=== PATIENT | male | born 1950 | race Caucasian/White ===

== ENCOUNTER 2023-07-22 14:02 | Emergency (ER) | payer OTHER ==
[2023-07-22] MEDS ORDERED: DOXY100T2 PO ×2 (14:28→14:35)
[2023-07-22] MEDS ORDERED: METH4TAB10 PO ×2 (14:28→14:35)
--- NOTE | 2023-07-22 14:28 | ED Cough/URI ---
General Chief Complaint: COVID19 Suspect/Confirmed Stated Complaint: DIARRHEA; NASAL DRAINAGE; LETHARGY Source: patient Exam Limitations: no limitations History of Present Illness Date Seen by Provider: Jul 22, 2023 Time Seen by Provider: 14:05 Initial Comments 72-year-old male with past medical history of COPD coming in due to cough, sore throat, diarrhea, and this is all been going on for several days. Denies any fever that he knows of, vomiting, chest pain, shortness of breath, abdominal pain, or any other concerns. Has not taken any medicines for it as of yet. He used to smoke and used to be on oxygen. Allergies and Home Medications Allergies Coded Allergies: No Known Drug Allergies (Unverified , 07/22/23) Patient Home Medication List Home Medication List Reviewed: Yes Doxycycline Hyclate (Doxycycline Hyclate) 100 Mg Tablet, 100 MG PO BID Prescribed by: NELLIE BARGER on 07/22/23 1428 Methylprednisolone (Methylprednisolone Dose Pack) 4 Mg Tab.ds.pk, 4 MG PO UD Prescribed by: NELLIE BARGER on 07/22/23 1428 Review of Systems Review of Systems Constitutional: No fever EENTM: see HPI Respiratory: no symptoms reported Cardiovascular: no symptoms reported Gastrointestinal: see HPI Genitourinary: no symptoms reported Musculoskeletal: no symptoms reported Skin: no symptoms reported Psychiatric/Neurological: No Symptoms Reported Past [id number] Hx Patient Social History Tobacco Use?: No Smoking Status: Former Smoker Physical Exam Capillary Refill : Height: '" Weight: lbs. oz. kg; BMI Method: General Appearance: WD/WN, no apparent distress Eyes: Bilateral Eye Normal Inspection, Bilateral Eye PERRL, Bilateral Eye EOMI HEENT: PERRL/EOMI, normal ENT inspection, TMs normal, pharynx normal Neck: non-tender, full range of motion, supple, normal inspection Respiratory: chest non-tender, lungs clear, normal breath sounds, no respiratory distress, no accessory muscle use Cardiovascular: regular rate, rhythm, no edema Gastrointestinal: normal bowel sounds, non tender, soft; No distended, No guarding, No rebound Extremities: normal range of motion, non-tender, normal inspection, no pedal edema, no calf tenderness, normal capillary refill Neurologic/Psychiatric: no motor/sensory deficits, alert, normal mood/affect Skin: normal color, warm/dry Progress/Results/Core Measures Suspected Sepsis SIRS Temperature: Pulse: Respiratory Rate: Blood Pressure / Mean: Results/Orders Lab Results Laboratory Tests Test 07/22/23 14:20 Range/Units My Orders Orders - NELLIE BARGER MD Influenza A And B By Pcr (07/22/23 14:20) Covid 19 Inhouse Test (07/22/23 14:20) Vital Signs/I&O Capillary Refill : Progress Note : Progress Note 72-year-old male with above history coming in due to URI type symptoms. ABCs were intact and vitals were stable on presentation. Physical exam reassuring including clear lungs and he is well-appearing. Viral testing including flu and COVID sent and are pending. Given his COPD history with a productive cough, we will send a steroid and antibiotic to his pharmacy. I believe he is stable for discharge with outpatient follow-up. He was sent home with strict return precautions Departure Impression Primary Impression: URI (upper respiratory infection) Qualified Codes: J06.9 - Acute upper respiratory infection, unspecified Additional Impression: Person under investigation for COVID-19 Disposition: 01 HOME, SELF-CARE Condition: Stable Departure-Patient Inst. Decision time for Depature: 14:35 Referrals: NO,LOCAL PHYSICIAN (PCP) Primary Care Physician Patient Instructions: Viral Upper Respiratory Infection, Adult (DC) Add. Discharge Instructions: This is most likely viral, we will call you with the results to your testing. An antibiotic and steroid were sent to due to your history of likely COPD with your prior smoking which will help with that. Please follow-up with your regular doctor if you are not seeing improvement within the next week. Scripts Methylprednisolone (Methylprednisolone Dose Pack) 4 Mg Tab.ds.pk 4 MG PO UD for 6 Days, #21 PKG PER DOSE PACK INSTRUCTIONS Prov: NELLIE BARGER MD 07/22/23 Doxycycline Hyclate (Doxycycline Hyclate) 100 Mg Tablet 100 MG PO BID for 5 Days, #10 TAB 0 Refills Prov: NELLIE BARGER MD 07/22/23 NELLIE BARGER MD Jul 22, 2023 14:28
[2023-07-22 14:33] VITALS: BP 144/76
== END 2023-07-22 14:33 | disposition home or self-care (01) ==
LOC: ER FS 14:06
DX: J06.9 Acute upper respiratory infection, unspecified (principal); J44.9 Chronic obstructive pulmonary disease, unspecified; Z87.891 Personal history of nicotine dependence; Z99.81 Dependence on supplemental oxygen; Z20.822 Contact with and (suspected) exposure to COVID-19
CPT/HCPCS: 87636; 99283